=== PATIENT | female | born 1960 | race Caucasian/White ===

== ENCOUNTER 2020-06-22 07:42 | Day surgery (SDC) | payer OTHER, BC ==
[2020-06-20 14:07] VITALS: BMI 21.9
[2020-06-22 08:44] VITALS: TEMP 97.8
[2020-06-22 09:21] VITALS: BP 105/65; PULSE 98
== END 2020-06-22 09:24 | disposition home or self-care (01) ==
LOC: FASU 07:42
PROVIDERS: ATTEND Internal Medicine Gastroenterology
PROC: 0DJD8ZZ Inspection of Lower Intestinal Tract, Via Natural or Artificial Opening Endoscopic (ICD-10-PCS; principal; 2020-06-22)
DX: Z12.11 Encounter for screening for malignant neoplasm of colon (principal)